=== PATIENT | male | born 1955 | race Caucasian/White ===

== ENCOUNTER 2018-06-20 09:10 | Day surgery (SDC) | payer BC ==
[2018-06-16 12:24] VITALS: BMI 31.4
[~2018-06-20 09:10] MED LIST: LACTATED RINGERS 1,000 ML IV SCH; LIDOCAINE 1% 20 ML VIAL (10MG/ML) FOR IV START INTRADERMA PRN
[2018-06-20 09:31] VITALS: TEMP 97.8
[2018-06-20] MEDS ORDERED: PROPOFOL 10 MG/ML 20 ML VIAL IV ONE (09:59)
--- NOTE | 2018-06-20 10:07 | P.GSHP ---
History of Present Illness H&P Date: 06/20/18 Chief Complaint: Screening colonoscopy, family history of colon cancer This a 62-year-old male referred from Dr. Rawls. Patient is today for screening colonoscopy. Patient denies a significant complaints.. - Constitutional Constitutional: Reports as per HPI Past Medical History Past Medical History: Hyperlipidemia Additional Past Medical History / Comment(s): SCREENING-FAMILY HX COLON CANCER History of Any Multi-Drug Resistant Organisms: None Reported Past Surgical History: No Surgical Hx Reported Additional Past Surgical History / Comment(s): COLONOSCOPY. RT ROTATOR CUFF REPAIR Past Anesthesia/Blood Transfusion Reactions: Motion Sickness Additional Past Anesthesia/Blood Transfusion Reaction / Comment(s): HAS ONLY HAD IV SEDATION, NO GENERAL . Smoking Status: Never smoker - Past Family History Mother Family Medical History: Coronary Artery Disease (CAD) Sister(s) Family Medical History: Cancer Additional Family Medical History / Comment(s): COLON. TWO SISTERS. Medications and Allergies Home Medications Medication Instructions Recorded Confirmed Type No Known Home Medications 06/16/18 06/20/18 History Allergies Allergy/AdvReac Type Severity Reaction Status Date / Time No Known Allergies Allergy Verified 06/20/18 09:27 Surgical - Exam Vital Signs Temp Pulse Resp BP Pulse Ox 97.8 F 78 16 137/82 95 06/20/18 09:27 06/20/18 09:27 06/20/18 09:27 06/20/18 09:27 06/20/18 09:27 - General well developed, no distress - Eyes PERRL - ENT normal pinna - Neck no masses - Respiratory normal expansion - Cardiovascular Rhythm: regular - Abdomen Abdomen: soft, non tender Assessment and Plan Assessment: We'll perform screening colonoscopy.
--- NOTE | 2018-06-20 10:24 | P.OP ---
Date of Procedure: 06/20/18 Preoperative Diagnosis: Screening colonoscopy Postoperative Diagnosis: Hemorrhoids Procedure(s) Performed: Colonoscopy Anesthesia: MAC Surgeon: David Davis Pathology: none sent Condition: stable Disposition: PACU Description of Procedure: PROCEDURE: The patient was placed on the endoscopy table in the lateral position. Digital rectal examination was performed which revealed external hemorrhoids. The prostate was symmetrical without nodules. Flexible colonoscope was then placed in the patient's anus and passed throughout the entire colon. The ileocecal valve was visualized. The cecum, ascending, transverse, descending and sigmoid colon were normal. The rectum was normal as well. There were no masses, polyps or diverticula noted in the entire colon. SUMMARY OF FINDINGS: External hemorrhoids
[2018-06-20 10:40] VITALS: BP 108/69; PULSE 63; RESP 18
== END 2018-06-20 10:55 | disposition home or self-care (01) ==
LOC: ORWHC2ENDO 09:10
PROVIDERS: ATTEND Surgery
DX: Z12.11 Encounter for screening for malignant neoplasm of colon (principal); K64.4 Residual hemorrhoidal skin tags; Z80.0 Family history of malignant neoplasm of digestive organs; E78.5 Hyperlipidemia, unspecified; I10 Essential (primary) hypertension; N40.0 Benign prostatic hyperplasia without lower urinary tract symptoms; E78.00 Pure hypercholesterolemia, unspecified; Z85.828 Personal history of other malignant neoplasm of skin
CPT/HCPCS: J2704; G0105; 45378

== ENCOUNTER → 2019-10-10 | Outpatient (CLI) | payer BC ==
--- NOTE | 2019-10-10 16:47 | NM ---
EXAMINATION TYPE: NM bone scan whole body DATE OF EXAM: 10/10/2019 COMPARISON: NONE HISTORY: 64-year-old male with thoracic spine pain. Suggested dx from OA: pain in thoracic spine; mu scle spasm of back; spondylosis without myelopathy or radiculopathy, thoracic region; neoplasm of uns pecified behavior of bone, and soft tissue, and skin; low back pain; radiculopathy, lumbar region, sp ondylosis without myelopathy or radiculopathy, lumbosacral region; spinal stenosis, lumbar region wit h neurogenic claudication; intervertebral disc degeneration/disorders with radiculopathy, lumbar TECHNIQUE: Delayed whole-body scanning was performed following the injection of 23.9 mCi Tc 99m MDP. Images acquired 3 hours post injection. FINDINGS: Focal increased activity bilateral first rib and, anterior left fourth rib, anterior right third rib, long segment involving the posterolateral right ninth rib. Additional foci posteriorly involving 2 l eft-sided ribs and one right-sided rib. Focal abnormal activity in T11 vertebral body, left L5 posterior elements, left superior acetabulum. IMPRESSION: Multiple foci within the ribs, a longer abnormal segment of the right posterolateral ninth rib, abnor mal focal intense activity left posterior elements L5, left superior acetabulum, and T11 vertebral stephen dy. Correlate for the possibility of underlying osseous metastatic disease.
== END | disposition home or self-care (01) ==
LOC: RADNMMAIN 09:57
PROVIDERS: ATTEND Orthopaedic Surgery Orthopaedic Surgery of the Spine
DX: R93.7 Abnormal findings on diagnostic imaging of other parts of musculoskeletal system (principal); M48.062 Spinal stenosis, lumbar region with neurogenic claudication; M51.16 Intervertebral disc disorders with radiculopathy, lumbar region; M51.36 Other intervertebral disc degeneration, lumbar region; M51.37 Other intervertebral disc degeneration, lumbosacral region; M47.814 Spondylosis without myelopathy or radiculopathy, thoracic region; M47.817 Spondylosis without myelopathy or radiculopathy, lumbosacral region; D48.0 Neoplasm of uncertain behavior of bone and articular cartilage; M62.830 Muscle spasm of back; M54.5 Low back pain; R07.81 Pleurodynia
CPT/HCPCS: 78306; A9503

== ENCOUNTER → 2019-10-10 | Outpatient (CLI) | payer BC ==
[2019-10-10 11:14] LABS: Basophils # (A) 0.1 k/uL (0-0.2); Basophils % (A) 1 %; Eosinophils % (A) 0 %; HCT 44.4 % (39.0-53.0); HGB 14.4 gm/dL (13.0-17.5); Lymphocytes # (A) 1.3 k/uL (1.0-4.8); Lymphocytes % (A) 9 %; MCHC 32.5 g/dL (31.0-37.0); MCV 92.2 fL (80.0-100.0); Mean Platelet Volume 6.9; Monocytes # (A) 0.9 k/uL (0-1.0); Monocytes % (A) 6 %; Neutrophils # (A) 12.7 k/uL (1.3-7.7); Neutrophils % (A) 84 %; Platelet Count 498 k/uL (150-450); RBC 4.82 m/uL (4.30-5.90); RDW 13.2 % (11.5-15.5); WBC 15.1 k/uL (3.8-10.6)
[2019-10-10 11:28] LABS: African American GFR (CKD) >90 (>60 ml/min/1.73 sqM); Anion Gap 11 mmol/L; Blood Urea Nitrogen 18 mg/dL (9-20); Calcium 10.2 mg/dL (8.4-10.2); Carbon Dioxide 28 mmol/L (22-30); Chloride 100 mmol/L (98-107); Glucose 99 mg/dL (74-99); Non-African American GFR(CKD) >90 (>60 ml/min/1.73 sqM); Potassium 4.8 mmol/L (3.5-5.1); Sodium 139 mmol/L (137-145)
[2019-10-10 11:59] LABS: Prothrombin Time 10.2 sec (9.0-12.0)
[2019-10-10 12:03] LABS: Partial Thromboplastin Time 21.1 sec (22.0-30.0)
--- NOTE | 2019-10-10 12:16 | XR ---
EXAMINATION TYPE: XR chest 2V DATE OF EXAM: 10/10/2019 COMPARISON: None HISTORY: 64-year-old male Z01.818, pathologic fracture T11, preop for back surgery. TECHNIQUE: Frontal and lateral views FINDINGS: Heart upper limits of normal in size. Mild diffuse interstitial densities. Unable to exclude a small effusion on the left. Minimal anterior wedging of a vertebral body in the lower thoracic spine. IMPRESSION: 1. Interstitial changes. Correlate to exclude mild pulmonary vascular congestion, bronchitis, or atyp ical pneumonias. 2. The lateral view suggests a trace left effusion with adjacent atelectasis and/or consolidation.
[2019-10-10 12:50] LABS: Appearance,Urine Clear (Clear); Bilirubin,Urine Negative (Negative); Blood,Urine Negative (Negative); Color,Urine Yellow; Glucose,Urine (UA) Negative (Negative); Ketones,Urine Negative (Negative); Leukocyte Esterase,Urine Negative (Negative); Nitrite,Urine Negative (Negative); PH, Urine 6.5 (5.0-8.0); Protein,Urine Negative (Negative); Specific Gravity,Urine 1.019 (1.001-1.035); Urobilinogen,Urine <2.0 mg/dL (<2.0)
== END | disposition home or self-care (01) ==
LOC: LABPAT 10:18
PROVIDERS: ATTEND Orthopaedic Surgery Orthopaedic Surgery of the Spine
DX: Z01.818 Encounter for other preprocedural examination (principal); Z01.812 Encounter for preprocedural laboratory examination; J84.9 Interstitial pulmonary disease, unspecified; M84.48XA Pathological fracture, other site, initial encounter for fracture
CPT/HCPCS: 36415; 71046; 80048; 81003; 85025; 85610; 85730; 86850; 86900; 86901; 93005

== ENCOUNTER → 2019-10-13 | Outpatient (CLI) | payer BC ==
--- NOTE | 2019-10-13 17:12 | CT ---
EXAMINATION TYPE: CT ChestAbdPelvis w con DATE OF EXAM: 10/13/2019 COMPARISON: None HISTORY: suspected bone ca CT DLP: 1806.6 mGycm Automated exposure control for dose reduction was used. CONTRAST: Performed with IV Contrast, patient injected with 100 mL of Isovue 300. Multiple axial sections were obtained from the thoracic inlet to the floor the pelvis with intravenou s contrast. There is 1 cm subpleural infiltrate lateral aspect left upper lobe. There is 8 mm pleural-based infil trate lateral aspect left upper lobe. There is 8 mm nodular density adjacent to the major fissure in the posterior left upper lobe. There are multiple areas of nodular pleural thickening on the left lat eral chest wall. There is left pleural effusion. There is patchy infiltrate and atelectasis left lowe r lobe. There is hiatal hernia. The right lung is relatively clear. There are multiple low-attenuation areas in the liver that measure up to 2.7 cm. Spleen is intact. Th ere is no pancreatic mass. Gallbladder appears normal. There is 2 x 1 cm nodular density left adrenal gland. Kidneys have normal size and contour. There is no hydronephrosis. There is 1.5 cm cortical cyst upper pole left kidney. Ureters are not dilated. There is no retroperitoneal adenopathy. Delayed images sh ow normal renal excretion. Bladder distends smoothly. There is no inguinal hernia. There is mild compression fracture of T10 vertebra 25% with patchy osteosclerosis. There are small bu lla osteoblastic changes in the lumbar vertebral bodies. There is osteoblastic change in pathologic f racture involving right posterior lateral ninth rib. There is some osteosclerosis in the inferior tip of the left scapula. There are some scattered osteoblastic foci in the thoracic vertebral bodies. Th ere is osteolytic and blastic change in the superior aspect of the left side of the sacrum. There is no mesenteric edema. There is no ascites or free air. There is no sign of a bowel obstructio n. There is no evidence of thickened appendix. IMPRESSION: Multiple hypodense liver lesions are suggestive of metastatic disease. Multiple osteoblastic and lytic areas skull as above consistent with metastatic disease. Small nodular density left adrenal gland could be metastatic disease. Patchy infiltrate and atelectasis and pleural fluid on the left side in the left lower lobe. Multiple foci of pleural thickening in the left lung. There are a few enlarged mediastinal and bronchial lymp h nodes that measure up to 2 cm. Thoracic primary malignancy is possible.
== END | disposition home or self-care (01) ==
LOC: RADCTMAIN 14:25
PROVIDERS: ATTEND Internal Medicine Hematology & Oncology
DX: K76.9 Liver disease, unspecified (principal); E27.8 Other specified disorders of adrenal gland; J98.11 Atelectasis; J94.8 Other specified pleural conditions; J98.4 Other disorders of lung; C79.51 Secondary malignant neoplasm of bone
CPT/HCPCS: 71260; 74177; Q9967

== ENCOUNTER → 2019-10-16 | Day surgery (SDC) | payer BC ==
[2019-10-12 09:41] VITALS: BMI 29.2
[~2019-10-16] MED LIST changes: +ACETAMINOPHEN TAB 500 MG TAB PO PRN; +Acetaminophen-Codeine 300-30mg TAB PO PRN; +BACLOFEN 10 MG TAB PO SCH; +BENZOCAINE/MENTHOL LOZENG 1 EACH LOZENGE MUCOUS MEM PRN; +BUPIVACAINE (PF) 0.5% 30 ML VIAL SQ ONE; +DEXAMETHASONE 4 MG TAB PO SCH; +DEXAMETHASONE SOD PHOSPHATE 10 MG/ML 1 ML VIAL IV ONE; +HYDROcodone/APAP 5-325MG 1 EACH TAB PO PRN; +HYDROmorphone (PF) 1 MG/ML ONE; +HYDROmorphone 0.5 MG/0.5 ML SYRINGE IVP PRN; +IBUPROFEN 600 MG TAB PO PRN; +IOPAMIDOL M200 10 ML VIAL MISCELLANE ONE; +KETOROLAC 30 MG/ML 1 ML VIAL IVP SCH; +LACTATED RINGERS 1,000 ML IV ONE; -LIDOCAINE 1% 20 ML VIAL (10MG/ML) FOR IV START INTRADERMA PRN; +LIDOCAINE 1% INJ 10MG/ML (20 ML MDV) ONE; +MIDAZOLAM 2 MG/2 ML VIAL IV PRN; +MIDAZOLAM 2 MG/2 ML VIAL ONE; +NON FORMULARY DRUG (Naproxen Sodium 220 MG) PO PRN; +ONDANSETRON 4 MG/2 ML VIAL IVP ONE; +ONDANSETRON 4 MG/2 ML VIAL IVP PRN; +PANTOPRAZOLE 40 MG TABLET PO SCH; +PHENYLEPHRINE-0.9% NACL SYG 1 MG/10 ML SYRINGE ONE; +PROPOFOL 10 MG/ML 20 ML VIAL IV ONE; +SCOPOLAMINE 1.5MG/72HR PATCH TRANSDERM ONE; +SODIUM CHLORIDE 0.9% 1,000 ML IV SCH; +SODIUM CHLORIDE 0.9% IRRIGATIO 1,000 ML IRRIGATION ONE; +SUCCINYLCHOLINE CHLORIDE 100 MG/5 ML SYR IV ONE; +fentaNYL (PF) 50 MCG/ML 2 ML AMP ONE
[2019-10-16 12:14] LABS: Glucose,Whole Blood 78 mg/dL (75-99)
[2019-10-16 14:22] VITALS: RESP 16; TEMP 97.9
--- NOTE | 2019-10-16 14:42 | P.OP ---
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 Islas Test Worker: Casey HERRERA Anesthesia: General anesthesia Estimated blood loss: Less than 10 mL Specimen: Vertebral body biopsy of T11 sent to pathology in formalin Complications: None apparent Components implanted: Bone cement approximately 2 mL Disposition: To recovery room in good stable condition. OPERATIVE INDICATIONS The patient has been having issues in their back over the past several months which have been worsening over the past few weeks. The patient started some oral medication for his pain and was not having significant improvement. He had further evaluation with imaging which showed significant findings which were suggestive of possible only metastasis at his spine and paraspinal mass. Patient underwent evaluation with our service as well as with hematology oncology service. Requested the patient had a tissue confirmation with bony biopsy from a spine for further direction of treatment. I felt that the the T11 vertebral body was the source of his symptoms where it showed some decompression with possible pathologic fracture and significant signal change on the MRI. I felt that a T11 vertebral body biopsy along with kyphoplasty may offer the best course for cell typing as well as possible treatment for the symptoms of his pain. We discussed various treatment options including surgery, and the patient wishes to proceed with surgery We discussed the risk, patient's alternatives and benefits of surgery including but not limited to, risk of bleeding risk of infection, risk of need for further surgery, risk of decreased, loss of motion, loss of function, cement extravasation, nerve damage, paralysis, heart attack, blindness and . OPERATIVE SUMMARY After discussing all the risks, patient alternatives and benefits at length, the patient elected to proceed with surgical intervention, signed informed consent, and presented for their procedure. The patient was seen and examined in the preoperative holding area and the surgical site was marked. The patient was given antibiotics and brought to the operating room. The patient was sedated and intubated by anesthesia in standard fashion. The patient was positioned on to the operating room table in a prone position on the appropriate well-padded and well molded bilateral chest rolls. We were careful to pad any bony prominences and pressure points. We were careful to maintain the patient's cervical spine and good neutral alignment and position throughout. We used 2 C-arm machines to establish biplanar fluoroscopic guidance in AP and lateral positions. We were able to localize the fractures at T11 appropriately. The patient was prepped and draped in a normal standard fashion. An appropriate timeout and keystone protocol performed. We were able to proceed w ith the surgery. The local wound area was infiltrated with local anesthetic. An incision was made over the lateral aspect of the pedicle over the appropriate levels with a small 2 mm stab incision. Intraoperative fluoroscopy was taken which showed a marker at the appropriate level of T11. With the appropriate level positively confirmed, I was able to position a sharp trocar over the lateral aspect of the pedicle. As able to advance the trocar into the pedicle and into the posterior aspect of vertebral body being careful to avoid penetration cephalad caudad or medially. The trocar was placed appropriately into the posterior aspect of vertebral body at the appropriate levels. This was confirmed with C-arm guidance. With the trocar intact I was then able to take a bone biopsy with a biopsy punch . The biopsy specimen was passed off to be sent to pathology in formalin. I was then able to place the kyphoplasty balloon within the vertebral body. The position was checked on C-arm. I was able to inflate the balloon under low pressure and visualization with C-arm. The balloon was well enclosed within the vertebral body. The cement was prepared. With the cement at appropriate working condition the balloons were deflated and removed. I was able to place bony cement with trocar with the cement delivery device under low pressure. It had good fill within the vertebral body. There is some evidence of extravasation of the cement cephalad into the disc space at T10 11 but there was no evidence of any extravasation of the cement posteriorly toward the canal. The cement was well contained at the appropriate level of T11. The cement was allowed to cure appropriately. The trochars removed and final images were taken on C-arm. This showed the cement at the appropriate levels. We were able to proceed with closure. The wound was cleaned and dried and dressed with the appropriate dressing. The drapes were broken down. The patient was gently rolled back onto their hospital bed being careful to maintain their cervical spine and good neutral alignment and position. They were woken up by anesthesia, extubated, and brought to the recovery room in good stable con dition. The patient will be admitted to the hospital for observation and for appropriate postoperative care, medical management and monitoring. We will continue to follow them closely about the postoperative course.
--- NOTE | 2019-10-16 14:50 | XR ---
EXAMINATION TYPE: XR thoracic spine 1V, FL guidance operating room DATE OF EXAM: 10/16/2019 CLINICAL HISTORY: Kyphoplasty of T11 TECHNIQUE: Fluoroscopy. COMPARISON: None. FINDINGS: Fluoroscopic guidance was provided during procedure performed by Dr. Islas. A total of 71 seconds of fluoroscopic time was utilized during the procedure and 3 spot images was acquired demons trating localization and kyphoplasty of T11. IMPRESSION: As Above.
[2019-10-16 15:00] VITALS: PULSE 68
[2019-10-16 15:20] VITALS: BP 155/96
== END | disposition home or self-care (01) ==
LOC: OR 11:35
PROVIDERS: ATTEND Orthopaedic Surgery Orthopaedic Surgery of the Spine
DX: M84.58XA Pathological fracture in neoplastic disease, other specified site, initial encounter for fracture (principal); C79.51 Secondary malignant neoplasm of bone; C80.1 Malignant (primary) neoplasm, unspecified; M47.814 Spondylosis without myelopathy or radiculopathy, thoracic region; M47.27 Other spondylosis with radiculopathy, lumbosacral region; M48.062 Spinal stenosis, lumbar region with neurogenic claudication; M51.16 Intervertebral disc disorders with radiculopathy, lumbar region; K21.9 Gastro-esophageal reflux disease without esophagitis; Z79.1 Long term (current) use of non-steroidal anti-inflammatories (NSAID); Z79.899 Other long term (current) drug therapy; Z79.52 Long term (current) use of systemic steroids; Z79.891 Long term (current) use of opiate analgesic; Z98.890 Other specified postprocedural states; Z87.11 Personal history of peptic ulcer disease; Z91.89 Other specified personal risk factors, not elsewhere classified; Z82.49 Family history of ischemic heart disease and other diseases of the circulatory system
CPT/HCPCS: 22513; 20225; 88342; 88307; 88311; 88341; 72020; C1713; J2250; J1100; J0690; J2405; J2001; J3010; J1170; J2370; J0330; J2704; Q9966; 86850; 86900; 86901